=== PATIENT | female | born 2000 | race Two or more races ===

== ENCOUNTER 2023-03-23 00:33 | Emergency (ER) | payer OTHER ==
[~2023-03-23] VITALS: Ht 152.4 cm; Wt 48.5 kg
== END 2023-03-23 04:40 | disposition home or self-care (01) ==
LOC: ER 00:33
DX: S01.112A Laceration without foreign body of left eyelid and periocular area, initial encounter (principal); W05.2XXA Fall from non-moving motorized mobility scooter, initial encounter; Y93.89 Activity, other specified; Y92.89 Other specified places as the place of occurrence of the external cause; Y99.9 Unspecified external cause status

== ENCOUNTER 2023-03-29 19:56 | Emergency (ER) | payer OTHER ==
[~2023-03-29] VITALS: Ht 152.4 cm; Wt 48.5 kg
[2023-03-29] MEDS ORDERED: ANTIDEPRESIVOS (20:13)
== END 2023-03-29 21:06 | disposition home or self-care (01) ==
LOC: ER 19:56
DX: Z48.02 Encounter for removal of sutures (principal)